=== PATIENT | female | born 1990 | race Two or more races ===

== ENCOUNTER 2023-09-26 21:54 | Emergency (ER) | payer OTHER ==
[~2023-09-26] VITALS: Ht 152.4 cm; Wt 72.6 kg
[2023-09-26] MEDS ORDERED: ACETAMINOPHEN 325 MG TABLET ONE (22:40)
[2023-09-26] MEDS ORDERED: LIDOCAINE 5% (PATCH) 1 EA PATCH TP ONE (22:40)
[2023-09-26] MEDS: LIDOCAINE 5% (PATCH) 1 EA PATCH TP SCH (22:44)
[2023-09-26] MEDS: ACETAMINOPHEN 325 MG TABLET PO ONE (22:44)
[2023-09-26 22:50] VITALS: BP 136/75; TEMP 98; O2SAT 98
== END 2023-09-26 22:51 ==
LOC: ER 21:57
DX: M54.50 Low back pain, unspecified (principal); G89.29 Other chronic pain; F41.9 Anxiety disorder, unspecified; Z60.2 Problems related to living alone